=== PATIENT | female | born 1975 | race Caucasian/White ===

== ENCOUNTER 2019-02-19 09:18 | Emergency (ER) | payer BC ==
[~2019-02-19] VITALS: Ht 170.2 cm; Wt 54.4 kg
[2019-02-19 09:18] VITALS: BP_SYST 154
[2019-02-19] MEDS ORDERED: MORPHINE SULFATE 10 MG/ML VIAL IVP ONE ×2 (09:30→10:00)
[2019-02-19] MEDS ORDERED: SILVER SULFADIAZINE 1%, 25 GM TOPICAL CREAM (SSD) TP ONE ×2 (09:45→09:54)
[2019-02-19 11:06] LABS: BASOPHILS # (AUTO) 0.1 K/uL (0.0-0.2); BASOPHILS % (AUTO) 0.6 % (0.0-2.0); EOSINOPHILS # (AUTO) 0.3 K/uL (0.0-0.4); EOSINOPHILS % (AUTO) 3.8 % (0.0-4.0); HEMATOCRIT 40.6 % (36-48); HEMOGLOBIN 13.8 g/dL (12.0-16.0); LYMPHOCYTES % (AUTO) 24.7 % (20.5-51.5); MEAN CORPUSCULAR HEMOGLOBIN 33 pg (27-31); MEAN CORPUSCULAR HGB CONC 34 % (32-36); MEAN CORPUSCULAR VOLUME 97 fL (79.0-98.0); MONOCYTES # (AUTO) 0.6 K/uL (0.0-1.0); MONOCYTES % (AUTO) 6.9 % (1.7-9.3); NEUTROPHILS # (AUTO) 5.1 K/uL (1.8-7.7); PLATELET COUNT (AUTO) 262 K/uL (130-430); RED CELL DISTRIBUTION WIDTH 12.9 % (9.0-15.0)
[2019-02-19 11:15] LABS: CREATININE 0.68 mg/dL (0.55-1.30); POTASSIUM 3.5 mmol/L (3.5-5.1)
[2019-02-19 11:22] LABS: ALBUMIN 4.3 g/dL (3.4-4.8); TOTAL BILIRUBIN 0.6 mg/dL (0.0-1.0)
[2019-02-19] MEDS ORDERED: ONDANSETRON HCL 4 MG/2 ML VIAL IVP ONE (11:45)
[2019-02-19] MEDS ORDERED: METOCLOPRAMIDE HCL 10 MG/2 ML VIAL IVP ONE (14:00)
[2019-02-19 14:15] VITALS: BP_SYST 107
== END 2019-02-19 14:15 | disposition short-term general hospital (02) ==
LOC: SED 09:18
DX: T23.301A Burn of third degree of right hand, unspecified site, initial encounter (principal); T31.0 Burns involving less than 10% of body surface; R03.0 Elevated blood-pressure reading, without diagnosis of hypertension; X10.2XXA Contact with fats and cooking oils, initial encounter; Y93.G3 Activity, cooking and baking; Y92.090 Kitchen in other non-institutional residence as the place of occurrence of the external cause; Y99.8 Other external cause status
CPT/HCPCS: 16020; 36415; 80053; 85025; 96374; 96375; 99285; J2270; J2405; J2765